=== PATIENT | male | born 1985 | race Caucasian/White ===

== ENCOUNTER 2019-09-29 18:40 | Emergency (ER) | payer OTHER, SELFPAY ==
[2019-09-29 18:48] VITALS: PULSE 75; RESP 24; TEMP 36.6; O2SAT 99
[2019-09-29 19:06] VITALS: BP 172/102
--- NOTE | 2019-09-29 19:06 | ED.SKABFB ---
HPI - Skin/Abscess/Foreign Bdy General Chief complaint: Skin/Abscess/Foreign Body Stated complaint: rash on arms/stomach/waist/legs Time Seen by Provider: 09/29/19 19:00 Source: patient and RN notes reviewed Mode of arrival: ambulatory Limitations: no limitations History of Present Illness HPI narrative: 34-year-old male presents with concern for rash, poison [place]. Reports he was exposed to poison [place] over the weekend. Reports rash has been spreading since that time. Reports he has getting in the pool to help dry out the poison [place]. Denies swollen lips, swollen tongue, difficulty breathing. MD complaint: rash Related Data Home Medications Medication Instructions Recorded Confirmed lisinopril-hydrochlorothiazide 1 tablet PO DAILY 09/29/19 09/29/19 Allergies Allergy/AdvReac Type Severity Reaction Status Date / Time No Known Allergies Allergy Unverified 09/29/19 19:00 Review of Systems Review of Systems: Narrative: CONSTITUTIONAL: Denies malaise, chills, sweats, or fever. EYES: Denies visual changes, redness ENT: Denies swollen lips, swollen tongue, difficulty swallowing CARDIOVASCULAR: Denies chest pain, palpitations, or edema. RESPIRATORY: Denies cough or dyspnea. GASTROINTESTINAL: Denies abdominal pain, nausea, vomiting, diarrhea SKIN: Reports itchy rash on arms, legs MUSCULOSKELETAL: Denies myalgia. All systems reviewed & are unremarkable except as noted in HPI and below PMFSH Comments At time of signature, agree with nursing past medical, surgical, social and family history. There is no relevant family history pertinent to the presenting complaint Exam Narrative: Exam Narrative: GENERAL: Well-appearing, well-nourished, and in no acute distress. HEAD: Normocephalic EYES: PERRLA, conjunctivae clear ENT: Nares clear. Mucous membranes moist. Oropharynx without edema erythema or lesions. Tonsils not enlarged and without exudate. NECK: Supple. CHEST: No respiratory distress. Clear to auscultation. No bony deformities, no asymmetry. Speaks in full sentences. HEART: Regular rate and rhythm. No murmur heard. SKIN: Warm, dry. Patches of erythema, some linear patterns, plaque noted to bilateral arms, legs consistent with contact dermatitis related to plants NEURO: Alert and oriented x3. PSYCH: Normal mood and affect Course Course Emergency Course: Patient is aware of diagnosis, understands and agrees to treatment plan. Anticipatory guidance given. Patient agrees to follow-up as directed and is aware of reasons to seek care at the emergency department. Portions of this record may have been created with voice recognition software Vital Signs Vital signs: Vital Signs Temperature 97.8 F 09/29/19 18:48 Pulse Rate 75 09/29/19 18:48 Respiratory Rate 24 H 09/29/19 18:48 Pulse Oximetry 99 09/29/19 18:48 Temperature 97.8 F 09/29/19 18:48 Pulse Rate 75 09/29/19 18:48 Respiratory Rate 24 H 09/29/19 18:48 Blood Pressure 172/102 H 09/29/19 19:06 Pulse Oximetry 99 09/29/19 18:48 Reviewed. Patient's history of hypertension MDM - Skin/Abscess/Foreign Bdy MDM Narrative Medical decision making narrative: Does not appear at this time to be erythema multiforme, bullous, SJS, TEN; no evidence at this time to suggest RMSF, endocarditis or Lyme disease; patient looks well, nontoxic and is tolerating oral intake; no neurologic signs or symptoms; no headache, photophobia or neck pain; afebrile; appropriate for initial outpatient treatment; discussed the importance of follow-up, patient agrees; question, viral exanthema, contact dermatitis, allergic dermatitis, eczema, urticaria, shingles. No soft palate or uvula edema, no tongue, lip edema or other mucosal involvement, no respiratory compromise, no stridor, no wheezing, no wheezing, no history of syncope, no hypotension, no nausea, vomiting, or diarrhea. Instructed patient to go to nearest ER immediately for any worsening symptoms including but not limited
== END 2019-09-29 19:20 | disposition home or self-care (01) ==
PROVIDERS: Emergency Provider Nurse Practitioner; PCP Internal Medicine Interventional Cardiology
DX: L25.5 Unspecified contact dermatitis due to plants, except food (principal); I10 Essential (primary) hypertension
CPT/HCPCS: 99203; G0463

== ENCOUNTER 2019-09-30 17:29 | Emergency (ER) | payer OTHER, SELFPAY ==
[2019-09-30 17:37] VITALS: BP 149/93; PULSE 79; RESP 20; TEMP 36.6; O2SAT 97
--- NOTE | 2019-09-30 17:38 | ED.GENADULT ---
HPI - General Adult General Chief complaint: Recheck/Abnormal Lab/Rx Stated complaint: Medication Refill Time Seen by Provider: 09/30/19 18:06 Source: patient and RN notes reviewed Mode of arrival: ambulatory Limitations: no limitations History of Present Illness HPI narrative: 34-year-old male presents for medication refill. Reports he has been out of his medication for approximately 1 week, is concerned because he is going out of town for 3 weeks for work. Reports he will see his primary care doctor when he returns. Denies any new symptoms. MD complaint: Medication refill Related Data Home Medications Medication Instructions Recorded Confirmed lisinopril-hydrochlorothiazide 1 tablet PO DAILY 09/29/19 09/30/19 Allergies Allergy/AdvReac Type Severity Reaction Status Date / Time No Known Allergies Allergy Verified 09/30/19 17:37 Review of Systems Review of Systems: Narrative: CONSTITUTIONAL: Denies malaise, chills, sweats, or fever. EYES: Denies visual changes CARDIOVASCULAR: Denies chest pain, palpitations, or edema. RESPIRATORY: Denies cough or dyspnea. GASTROINTESTINAL: Denies abdominal pain NEUROLOGIC: Denies numbness, weakness, or headache. All systems reviewed & are unremarkable except as noted in HPI and below PMFSH Comments At time of signature, agree with nursing past medical, surgical, social and family history. There is no relevant family history pertinent to the presenting complaint Exam Narrative: Exam Narrative: GENERAL: Well-appearing, well-nourished, and in no acute distress. HEAD: Normocephalic, atraumatic. EYES: PERRLA, conjunctivae clear ENT: Mucous membranes moist. NECK: Supple. CHEST: No respiratory distress. Clear to auscultation. No bony deformities, no asymmetry. Speaks in full sentences. HEART: Regular rate and rhythm. No murmur heard. Normal peripheral pulses. SKIN: Warm, dry, no rash. NEURO: Alert and oriented x3. PSYCH: Normal mood and affect Course Course Emergency Course: Patient is aware of diagnosis, understands and agrees to treatment plan. Anticipatory guidance given. Patient agrees to follow-up as directed and is aware of reasons to seek care at the emergency department. Portions of this record may have been created with voice recognition software Vital Signs Vital signs: Vital Signs Temperature 98 F 09/30/19 17:37 Pulse Rate 79 09/30/19 17:37 Respiratory Rate 20 09/30/19 17:37 Blood Pressure 149/93 H 09/30/19 17:37 Pulse Oximetry 97 09/30/19 17:37 Temperature 98 F 09/30/19 17:37 Pulse Rate 79 09/30/19 17:37 Respiratory Rate 20 09/30/19 17:37 Blood Pressure 149/93 H 09/30/19 17:37 Pulse Oximetry 97 09/30/19 17:37 Reviewed. Patient has history of hypertension Medical Decision Making MDM Narrative Medical decision making narrative: Exam findings show no acute concerns or changes; patient is non-toxic appearing and is in no distress. Patient is appropriate for outpatient treatment and follow-up. Vital Signs Vital Signs: Vital Signs Temperature 98 F 09/30/19 17:37 Pulse Rate 79 09/30/19 17:37 Respiratory Rate 20 09/30/19 17:37 Blood Pressure 149/93 H 09/30/19 17:37 Pulse Oximetry 97 09/30/19 17:37 Temperature 98 F 09/30/19 17:37 Pulse Rate 79 09/30/19 17:37 Respiratory Rate 09/30/19 17:37 Blood Pressure 149/93 H 09/30/19 17:37 Pulse Oximetry 97 09/30/19 17:37 Critical Care Time Critical Care Time Critical Care Time: No Discharge Plan Discharge Clinical Impression: Encounter for medication refill Patient Disposition: Home, Self-Care Condition: Stable Instructions: Hypertension (ED) Additional Instructions: 1) Please follow-up with your primary care doctor for your evaluation and future medication refill. 2) If you have any urgent concerns please go to the ER. 3) Please take medications as prescribed. 4) Please read and follow information included in discharge inst
== END 2019-09-30 18:23 | disposition home or self-care (01) ==
PROVIDERS: Emergency Provider Nurse Practitioner; PCP Physician Assistant
DX: Z76.0 Encounter for issue of repeat prescription (principal)
CPT/HCPCS: 99211; 99213; G0463

== ENCOUNTER 2020-08-04 15:51 | Emergency (ER) | payer OTHER, SELFPAY ==
--- NOTE | ~2020-08-04 | XR_ITS ---
[id number] DATE: 08/04/2020 16:23 INDICATION: Right rib pain after diving for volleyball 4 days ago TECHNIQUE: PA chest. 4 views of the right ribs. COMPARISON: None FINDINGS: No right rib fracture is evident. Normal heart size. No hilar or mediastinal enlargement. No pulmonary infiltrate or consolidation, ple ural effusion or pulmonary vascular congestion or pneumothorax. IMPRESSION: Negative Reviewed, dictated and finalized at [facility] Reviewed, dictated and finalized at [facility] IMPRESSION: Negative
[2020-08-04 15:58] VITALS: BP 155/88; PULSE 63; RESP 20; TEMP 36.7; O2SAT 100
--- NOTE | 2020-08-04 16:02 | ED.BACK ---
HPI - Back Pain/Injury General Chief Complaint: Unspecified Stated Complaint: side and back pain Time Seen by Provider: 08/04/20 16:02 Source: patient and RN notes reviewed History of Present Illness HPI Narrative: Patient is a 35-year-old male who presents the urgent care with complaints of mid to the right side low back pain as well as right-sided rib pain. Patient states that he dove for a volleyball on Saturday and has now been having a lot of increase in pain. Patient states that it increases with movement or any lifting. Denies of any shortness of breath or chest pains. States that he has been taking ibuprofen for the pain. No other acute complaints. No acute distress noted. Patient aware of the plan of care. Some parts of this dictation were generated by voice recognition software and may contain typographical and/or grammatical inaccuracies. Related Data Home Medications Medication Instructions Recorded Confirmed lisinopril 20 mg PO DAILY 08/04/20 08/04/20 Allergies Allergy/AdvReac Type Severity Reaction Status Date / Time No Known Allergies Allergy Verified 08/04/20 16:17 Review of Systems Review of Systems: Narrative: CONSTITUTIONAL: Denies fever, chills, or sweats. EYES: Denies visual changes, redness, or discharge. ENT: Denies rhinorrhea, congestion, sore throat, or otalgia. CARDIOVASCULAR: Denies chest pain, palpitations, or edema. RESPIRATORY: Denies cough or dyspnea. GASTROINTESTINAL: Denies abdominal pain, nausea, vomiting, or diarrhea. GENITOURINARY: Denies dysuria or hematuria. SKIN: Denies rash or itching. MUSCULOSKELETAL: Reports of mid to right sided low back pain as well as right rib pain NEUROLOGIC: Denies headache, numbness, or weakness. All other systems reviewed are negative, except as documented in HPI. PMFSH Comments At the time of my signature, I reviewed and agree with the nursing past medical, surgical, social, and family history. There is no relevant family history pertinent to the patient complaint. Exam Narrative: Exam Narrative: GENERAL: This is a well-nourished, well-developed patient, in no apparent distress. HEAD: normocephalic, atraumatic. EYES: PERRL. Sclera clear/white. Vision is grossly intact. EARS: External ears normal NOSE: External nose normal with no obvious nasal discharge, nares without redness, no rhinorrhea. THROAT: Mucous membranes moist NECK: Neck supple CARDIOVASCULAR: Regular rate and rhythm without murmurs, gallops, or rubs. RESPIRATORY: Clear to auscultation. Breath sounds equal bilaterally. No wheezes, rales, or rhonchi. Mild right-sided upper anterior rib pain SKIN: warm, intact with no suspicious lesions or rash, good texture and turgor. NEURO: awake, alert, and oriented to person, place and time. There were no obvious focal neurologic abnormalities. EXTREMITIES: No clubbing, cyanosis, or edema. BACK: Mild to moderate mid to right sided low back pain with positive right SLE Course Vital Signs Vital signs: Vital Signs Temperature 98.0 F 08/04/20 15:58 Pulse Rate 63 08/04/20 15:58 Respiratory Rate 20 08/04/20 15:58 Blood Pressure 155/88 H 08/04/20 15:58 Pulse Oximetry 100 08/04/20 15:58 Temperature 98.0 F 08/04/20 15:58 Pulse Rate 63 08/04/20 15:58 Respiratory Rate 20 08/04/20 15:58 Blood Pressure 155/88 H 08/04/20 15:58 Pulse Oximetry 100 08/04/20 15:58 Reviewed-patient is informed that they may have pre-hypertension or hypertension based on a blood pressure reading in the department. I recommend the patient call the primary care provider listed on their discharge instructions or a physician of their choice this week to arrange follow-up for further evaluation of possible pre-hypertension or hypertension. MDM - Back Pain/Injury MDM Narrative Medical decision making narrative: Reviewed x-ray results with the patient. He is aware the x-ray is negative for rib fracture. Advised the patient to complete steroid carol
== END 2020-08-04 16:53 | disposition home or self-care (01) ==
PROVIDERS: Emergency Provider Nurse Practitioner Family; PCP Family Medicine
DX: M54.41 Lumbago with sciatica, right side (principal); I10 Essential (primary) hypertension
CPT/HCPCS: 71101; 99213; G0463